=== PATIENT | male | born 1985 | race Asian ===

== ENCOUNTER 2017-04-05 13:22 | Emergency (ER) | payer OTHER ==
[~2017-04-05] VITALS: Ht 177.8 cm; Wt 95.3 kg
[2017-04-05] MEDS ORDERED: IBUPROFEN600 MG ORAL (13:45)
[2017-04-05 13:58] VITALS: BP 117/72
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
== END 2017-04-05 14:00 | disposition home or self-care (01) ==
LOC: EMR 13:40
DX: S00.83XA Contusion of other part of head, initial encounter (principal); S50.12XA Contusion of left forearm, initial encounter; S40.012A Contusion of left shoulder, initial encounter; Y04.2XXA Assault by strike against or bumped into by another person, initial encounter; Y92.239 Unspecified place in hospital as the place of occurrence of the external cause; Y99.0 Civilian activity done for income or pay
CPT/HCPCS: 99283